=== PATIENT | female | born 1980 | race Caucasian/White ===

== ENCOUNTER 2019-01-13 07:09 | Emergency (ER) | payer MEDICAID, OTHER ==
[~2019-01-13] VITALS: Ht 167.6 cm; Wt 97.9 kg
[~2019-01-13 07:09] MED LIST: CEFT1PIG2 IVPB; METR750T PO; [UNRECOGNIZED DRUG - OTHER]
[2019-01-13 07:12] VITALS: BP 157/87; PULSE 100; RESP 24; Ht 167.6 cm; Wt 97.9 kg
[2019-01-13] MEDS ORDERED: AMOX1TAB10 PO (07:45)
[2019-01-13] MEDS ORDERED: SODI30SP2 NS (07:45)
--- NOTE | 2019-01-13 07:48 | ERD ---
ER Documentation Chief Complaint Chief Complaint shortness of breath; nasal congestion HPI 38-year-old female presents for nasal congestion for about 4 weeks. She states that she was given antibiotics about 4 weeks ago, symptoms initially improved however they returned. She says admits to associated sore throat. Denies fever or cough. She is unsure what the name of the antibiotic she was given was. No other treatments tried. No significant past medical history. ROS All systems reviewed and are negative except as per history of present illness. Medications Home Meds Active Scripts Sodium Chloride (Saline Nasal [place]) 30 Ml [place], 30 ML NS BID PRN for NASAL CONGESTION, #1 BOTTLE Prov:BRANDONSHILOH 01/13/19 Amoxicillin/Potassium Clav (Amox-Clav 875-125 mg Tablet) 875-125 mg Tab, 1 TAB PO BID for sinusitis for 5 Days, #10 TAB Prov:SHILOH TAYLOR 01/13/19 Metronidazole* (Flagyl ER*) 750 Mg Tablet.sa, 750 MG PO DAILY for 14 Days, TAB.SA Prov:EFREN VELASQUEZ MD 11/25/15 Ceftriaxone Sod* (Rocephin* 1GM/50ML (PMX)) 1 Gm/50 Ml Iv.soln., 1 GM IVPB Q24H for 14 Days, EA Prov:EFREN VELASQUEZ MD 11/25/15 Reported Medications [acoproval] No Conflict Check 07/11/14 Allergies Allergies: Coded Allergies: No Known Allergy (Unverified , 11/21/15) PMhx/Soc Medical and Surgical Hx: pt denies Medical Hx, pt denies Surgical Hx History of Surgery: No Anesthesia Reaction: No Hx Neurological Disorder: No Hx Respiratory Disorders: No Hx Cardiac Disorders: No Hx Psychiatric Problems: No Hx Miscellaneous Medical Probl: No Hx Alcohol Use: No Hx Substance Use: No Hx Tobacco Use: Yes Smoking Status: Former smoker Physical Exam Vitals Vital Signs Date Temp Pulse Resp B/P (MAP) Pulse Ox O2 O2 Flow FiO2 Time Delivery Rate 01/13/19 97.8 100 24 157/87 99 07:12 (110) Physical Exam Const: No acute distress Head: Atraumatic Eyes: Normal Conjunctiva ENT: Normal External Ears, bilateral nasal erythema noted, no polyps noted, oral examination normal Neck: Full range of motion. No meningismus. Resp: Clear to auscultation bilaterally Cardio: Regular rate and rhythm, no murmurs Skin: No petechiae or rashes Ext: No cyanosis, or edema Neur: Awake and alert Psych: Normal Mood and Affect Procedures/MDM Medical Decision Making: Differential diagnosis includes but not limited to acute sinusitis, upper respiratory infection, pneumonia, sepsis, meningitis, influenza. Patient appeared well on physical examination, nontoxic appearing. Lungs were clear to auscultation bilaterally. There is low suspicion for pneumonia, sepsis, meningitis. Given initial symptom improvement with subsequent worsening of symptoms, patient will be given a trial of antibiotic Patient given prescription for supportive medication(s) and Augmentin. Patient advised to follow up with PCP in 1-2 days. Patient advised to return to ED for new or worsening symptoms. Patient stable on discharge from the ED. Disclaimer: Inadvertent spelling and grammatical errors are likely due to EHR/dictation software use and do not reflect on the overall quality of patient care. Also, please note that the electronic time recorded on this note does not necessarily reflect the actual time of the patient encounter. Departure Diagnosis: Primary Impression: Sinusitis Sinusitis location: maxillary Chronicity: acute Recurrence: not specified as recurrent Qualified Codes: J01.00 - Acute maxillary sinusitis, unspecified Condition: Fair Patient Instructions: Sinusitis, Abx Tx Additional Instructions: Call your primary care doctor TOMORROW for an appointment during the next 1-2 days.See the doctor sooner or return here if your condition worsens before your appointment time. SHILOH TAYLOR DO Jan 13, 2019 07:48
== END 2019-01-13 08:06 | disposition home or self-care (01) ==
LOC: FTE 07:09
DX: J01.00 Acute maxillary sinusitis, unspecified (principal); Z87.891 Personal history of nicotine dependence
CPT/HCPCS: 99283

== ENCOUNTER 2019-03-04 17:42 | Emergency (ER) | payer SELFPAY ==
[~2019-03-04] VITALS: Wt 97.1 kg
[~2019-03-04 17:42] MED LIST changes: +AMOX1TAB10 PO; +SODI30SP2 NS
[2019-03-04] MEDS ORDERED: ALBUTEROL 0.5% (NEB) 2.5 MG/0.5 ML AMP INH STA (18:10)
[2019-03-04] MEDS ORDERED: predniSONE 20 MG TAB PO STA (18:10)
--- NOTE | 2019-03-04 19:33 | ERD ---
ER Documentation Chief Complaint Chief Complaint SINUS CONGESTION FOR A YEAR AND INTERMITTENTLY GETTING BETTER. MILD SOB HPI 38-year-old female presenting to the emergency department complaining of intermittent sinus congestion for 1 year but worse over the past several days. Symptoms moderate in severity. Patient is also had some mild shortness of breath and cough for the past 1 day. She has had tactile fevers. No other symptoms reported currently. ROS All systems reviewed and are negative except as per history of present illness. Medications Home Meds Active Scripts Albuterol Sulfate* (Ventolin HFA*) 18 Gm Hfa.aer.ad, 2 PUFF INHALATION Q4H, #1 INHALER Prov:TERI MEADE PA-C 03/04/19 Benzonatate* (Benzonatate*) 200 Mg Capsule, 200 MG PO TID PRN for COUGH, #15 CAP Prov:TERI MEADE PA-C 03/04/19 Azithromycin* (Zithromax*) 250 Mg Tablet, 250 MG PO .ZPACK DIRECTED, #6 TAB TAKE 500 MG (2 TABS) THE FIRST DAY THEN 250 MG (1 TAB) DAYS 2-5 Prov:TERI MEADE PA-C 03/04/19 Methylprednisolone* (Medrol* DOSE PACK) 4 Mg/Dose-Pack Tab.ds.pk, 4 MG PO . DIRECTED, #1 PACKET Prov:TERI MEADE PA-C 03/04/19 Fluticasone Propionate (Flonase Allergy Relief) 9.9 Ml [place].susp, 1 SPRAY NASAL BID, #1 BOTTLE TO EACH NOSTRIL Prov:TERI MEADE PA-C 03/04/19 Sodium Chloride (Saline Nasal [place]) 30 Ml [place], 30 ML NS BID PRN for NASAL CONGESTION, #1 BOTTLE Prov:SHILOH TAYLOR DO 01/13/19 Amoxicillin/Potassium Clav (Amox-Clav 875-125 mg Tablet) 875-125 mg Tab, 1 TAB PO BID for sinusitis for 5 Days, #10 TAB Prov:SHILOH TAYLOR DO 01/13/19 Metronidazole* (Flagyl ER*) 750 Mg Tablet.sa, 750 MG PO DAILY for 14 Days, TAB.SA Prov:EFREN VELASQUEZ MD 11/25/15 Ceftriaxone Sod* (Rocephin* 1GM/50ML (PMX)) 1 Gm/50 Ml Iv.soln., 1 GM IVPB Q24H for 14 Days, EA Prov:EFREN VELASQUEZ MD 11/25/15 Reported Medications [acoproval] No Conflict Check 07/11/14 Allergies Allergies: Coded Allergies: No Known Allergy (Unverified , 11/21/15) PMhx/Soc History of Surgery: No Anesthesia Reaction: No Hx Neurological Disorder: No Hx Respiratory Disorders: No Hx Cardiac Disorders: No Hx Psychiatric Problems: No Hx Miscellaneous Medical Probl: No Hx Alcohol Use: No Hx Substance Use: No Hx Tobacco Use: Yes Smoking Status: Former smoker FmHx Family History: No diabetes Physical Exam Vitals Vital Signs Date Temp Pulse Resp B/P (MAP) Pulse Ox O2 O2 Flow FiO2 Time Delivery Rate 03/04/19 97.7 102 20 127/62 94 20:33 (83) 03/04/19 110 20 97 Room Air 19:05 03/04/19 Simple 19:05 Mask 03/04/19 75 16 98 21 18:22 03/04/19 98.8 102 20 148/91 95 17:47 (110) Physical Exam Const: No acute distress Head: Atraumatic Eyes: Normal Conjunctiva ENT: Normal External Ears, Nose and Mouth. Nares are congested. Neck: Full range of motion. No meningismus. Resp: Shallow inspiratory effort and rhonchi noted to the right upper lung field. No crackles. No respiratory distress. Cardio: Regular rate and rhythm, no murmurs Abd: Soft, non tender, non distended. Normal bowel sounds Skin: No petechiae or rashes Back: No midline or flank tenderness Ext: No cyanosis, or edema Neur: Awake and alert Psych: Normal Mood and Affect Results 24 hrs Current Medications Medications Dose Sig/Mahnaz Start Time Status Last (Trade) Ordered Route PRN Stop Time Admin Dose Reason Admin Albuterol 10 mg ONCE STAT 03/04/19 DC 03/04/19 (Proventil INH 18:10 03/04/19 18:20 0.5% (Neb)) 18:11 Prednisone 60 mg ONCE STAT 03/04/19 DC 03/04/19 (Prednisone) PO 18:10 03/04/19 18:17 18:11 [place] [phone] Radiology Main Line: [phone] DIAGNOSTIC IMAGING REPORT Patient: JAYDON ROYAL : 1980 Age: 38 Sex: F MR #: [id number] DOS: 03/04/19 0000 Ordering MD: TERI MEADE PA-C Location: [facility] Room/Bed: PROCEDURE: XR Chest. CLINICAL INDICATION: Cough TECHNIQUE: A single AP view of the chest was obtained. COMPARISON: None. FINDINGS: There is elevation of the left diaphragm with left basilar atelectasis. No pleural effusion or pneumothorax is seen. The cardiomediastinal silhouette is within normal limits for size. The osseous structures are unremarkable. IMPRESSION: Elevation of the left diaphragm with left basilar atelectasis. Findings are mildly increased when compared to the prior examination. RPTAT: HH .Nisha Fong MD, MD Date Time Electronically viewed and signed by .Nisha Fong MD, MD on 03/04/2019 19:57 .G/ CC: TERI MEADE PA-C [id number] Procedures/MDM 38-year-old female presenting to the emergency department with signs and symptoms most consistent with acute bronchitis and acute sinusitis. Patient has some rhonchi to the right upper lung field and was administered albuterol breathing treatment in the department with significant improvement of her symptoms. Patient will be treated as an outpatient with prescriptions. She was in agreement with the diagnosis, plan company for follow-up, return precautions. Patient's respiratory status has stabilized while in the department and is appropriate for outpatient work up. Exam and work up not consistent w/ impending respiratory failure or cardiovascular collapse. Departure Diagnosis: Primary Impression: Acute bronchitis Additional Impression: Acute sinusitis Condition: Fair TERI MEADE PA-C Mar 04, 2019 19:33
[2019-03-04] MEDS ORDERED: MED4DP PO (20:09)
[2019-03-04] MEDS ORDERED: AZIT250T PO (20:09)
[2019-03-04] MEDS ORDERED: FLUT9.9S NASAL (20:09)
[2019-03-04] MEDS ORDERED: BENZ200C68 PO (20:09)
[2019-03-04] MEDS ORDERED: ALBU18HF INHALATION (20:09)
[2019-03-04 20:33] VITALS: BP 127/62; PULSE 102; RESP 20
== END 2019-03-04 20:34 | disposition home or self-care (01) ==
LOC: FTE 17:42
DX: J20.9 Acute bronchitis, unspecified (principal); J01.90 Acute sinusitis, unspecified; Z87.891 Personal history of nicotine dependence
CPT/HCPCS: 71045; 94644; J7512